=== PATIENT | male | born 1990 | race Hispanic/Latino ===

== ENCOUNTER 2025-02-23 08:30 | Emergency (ER) | payer OTHER ==
[2025-02-23] MEDS: Ondansetron 4 MG Tab.DIS PO ONE (09:02)
[2025-02-23] MEDS ORDERED: Sodium Chloride 0.9% 10 ML Syringe FLUSH PRN (09:17)
[2025-02-23] MEDS: Lactated Ringers 1,000 ML IV ONE (09:23)
[2025-02-23] MEDS: droPERidol 5 MG/2 ML SDV IVPUSH ONE (09:23)
== END 2025-02-23 10:08 | disposition home or self-care (01) ==
LOC: VM.ED 08:30
DX: K52.9 Noninfective gastroenteritis and colitis, unspecified (principal); J32.9 Chronic sinusitis, unspecified
CPT/HCPCS: 87428-QW; 96361; 96374; 99284-25; A9270-GY; J1790; J7120